=== PATIENT | female | born 1955 | race Caucasian/White ===

== ENCOUNTER → 2016-07-31 | Outpatient (CLI) | payer OTHER ==
[~2016-07-31] MED LIST: CRANBERRY1000 MG PO; CRESTOR 10MG10 MG PO; FISH OIL1 IU PO; FLAX SEED; FLAX SEED OIL1000 MG PO; FLONASE NASAL S16 GM NS; FOLIC ACID 40400 MCG PO; Fosamax PO; LEVOXYL0.05 MG PO; LIPITOR 40MG TA40 MG PO; MOBIC15 MG PO; MULTIPLE VITAMI1 CAP PO; PHENTERMINE37.5 MG PO; POLY IRON PN1 TAB PO; POTASSIUM GLUC595 M1 PO; PRILOSEC 20MG20 MG PO; STOOL SOFTENER100 M1 PO; TOPAMAX 25MG25 M1 PO; TOPAMAX25 M1 PO; TOPAMAX50 MG PO; VENTOLIN0.09 MG IH; VITAMIN C500 MG PO; VITAMIN D1000 IU PO; VITAMIN D5000 IU PO; WARFARIN SOD5 MG PO; ZYRTEC 10MG10 MG PO; ZYRTEC ALLERGY10 MG PO
== END ==
LOC: COL.RAD 08:15
DX: R10.11 Right upper quadrant pain (principal); R10.31 Right lower quadrant pain; Z87.440 Personal history of urinary (tract) infections

== ENCOUNTER → 2017-03-09 | Outpatient (CLI) | payer OTHER | LOC: MC.RAD 13:16 | DX: Z12.31 Encounter for screening mammogram for malignant neoplasm of breast (principal); N64.89 Other specified disorders of breast ==

== ENCOUNTER → 2017-03-15 | Outpatient (CLI) | payer OTHER | LOC: MC.RAD 14:00 | DX: N60.02 Solitary cyst of left breast (principal); N64.89 Other specified disorders of breast ==

== ENCOUNTER → 2018-03-11 | Outpatient (CLI) | payer OTHER | LOC: MC.RAD 11:11 | DX: Z12.31 Encounter for screening mammogram for malignant neoplasm of breast (principal) ==

== ENCOUNTER → 2020-03-11 | Outpatient (CLI) | payer MEDICARE | LOC: MC.RAD 13:25 | DX: Z12.31 Encounter for screening mammogram for malignant neoplasm of breast (principal) ==

== ENCOUNTER → 2021-04-19 | Outpatient (CLI) | payer MEDICARE | LOC: MC.RAD 10:00 | DX: Z12.31 Encounter for screening mammogram for malignant neoplasm of breast (principal) ==

== ENCOUNTER 2021-08-24 15:26 | Outpatient (RCR) | payer SELFPAY ==
[2021-08-25] MEDS ORDERED: LIPITOR 40MG TA40 MG PO (06:45)
[2021-08-25] MEDS ORDERED: PLAQUENIL 200M200 MG PO (06:46)
[2021-08-25] MEDS ORDERED: SYNTHROID0.05 MG/TA PO (06:46)
[2021-08-25] MEDS ORDERED: SINGULAIR 110 MG/TAB PO (06:47)
[2021-08-25] MEDS ORDERED: DESOWEN0.05% TP (06:47)
[2021-08-25] MEDS ORDERED: KENALOG 60 ML60 M1 TP (06:49)
== END 2021-09-01 ==
LOC: COL.CR
DX: Z29.8 Encounter for other specified prophylactic measures (principal)

== ENCOUNTER 2021-08-25 06:32 | Day surgery (SDC) | payer MEDICARE ==
[~2021-08-25] VITALS: Ht 157.5 cm; Wt 66.7 kg
[2021-08-25] MEDS ORDERED: LIPITOR 40MG TA40 MG PO (06:45)
[2021-08-25] MEDS ORDERED: PLAQUENIL 200M200 MG PO (06:46)
[2021-08-25] MEDS ORDERED: SYNTHROID0.05 MG/TA PO (06:46)
[2021-08-25] MEDS ORDERED: SINGULAIR 110 MG/TAB PO (06:47)
[2021-08-25] MEDS ORDERED: DESOWEN0.05% TP (06:47)
[2021-08-25] MEDS ORDERED: KENALOG 60 ML60 M1 TP (06:49)
[2021-08-25 07:05] VITALS: BP 100/64; PULSE 65; TEMP 97.7
[2021-08-25 08:20] VITALS: BP 108/65; PULSE 56; TEMP 97.4
[2021-08-25 08:35] VITALS: BP 82/66; PULSE 55
[2021-08-25 08:50] VITALS: BP 120/67; PULSE 56
--- NOTE | 2021-08-25 09:15 | NUR ---
0820 PT RETURNED TO [facility] VIA CART, TRANSFERED TO CHAIR WITH RN ASSIST. ALERT AND ORIENTED. POSTOP VITALS STARTED, ALARMS SET. COFFEE ABD MUFFIN PROVIDED. PT ALLOWED TO REST LONGER. 0835 PT DENIES PAIN OR NAUSEA, TOLERATING FOOD AND DRINK WELL. 0850 PT DENIES DISCOMFORT. REVIEWED DISCHARGE INSTRUCTIONS AND EDUCATION MATERIAL, ANSWERED ALL QUESTIONS. IV D/C WITHOUT COMPLICATIONS PT ALLOWED TO REST AND THEN DRESS. 0915 PT TRANSFERED VIA WHEELCHAIR TO PERSONAL VEHICLE TO BE DRIVEN HOME BY .
== END 2021-08-25 09:15 | disposition home or self-care (01) ==
LOC: SDCO 06:32
DX: Z12.11 Encounter for screening for malignant neoplasm of colon (principal); D12.0 Benign neoplasm of cecum; K63.3 Ulcer of intestine; K64.8 Other hemorrhoids; Z87.891 Personal history of nicotine dependence
CPT/HCPCS: J2704; J7120

== ENCOUNTER 2021-09-21 12:18 | Outpatient (RCR) | payer SELFPAY ==
[~2021-09-21 12:18] MED LIST changes: +DESOWEN0.05% TP; +KENALOG 60 ML60 M1 TP; +PLAQUENIL 200M200 MG PO; +SINGULAIR 110 MG/TAB PO; +SYNTHROID0.05 MG/TA PO
== END 2021-10-01 ==
LOC: COL.CR
DX: Z29.8 Encounter for other specified prophylactic measures (principal)

== ENCOUNTER 2021-10-07 15:15 | Outpatient (RCR) | payer SELFPAY | END 2021-11-01 | LOC: COL.CR | DX: Z29.8 Encounter for other specified prophylactic measures (principal) ==

== ENCOUNTER 2021-11-02 03:38 | Outpatient (RCR) | payer SELFPAY | END 2021-12-01 | LOC: COL.CR | DX: Z29.8 Encounter for other specified prophylactic measures (principal) ==

== ENCOUNTER 2021-12-02 15:28 | Outpatient (RCR) | payer SELFPAY | END 2022-01-01 | LOC: COL.CR | DX: Z29.8 Encounter for other specified prophylactic measures (principal) ==

== ENCOUNTER 2022-01-02 04:13 | Outpatient (RCR) | payer SELFPAY | END 2022-02-01 | LOC: COL.CR | DX: Z29.8 Encounter for other specified prophylactic measures (principal) ==